=== PATIENT | female | born 1955 | race Caucasian/White ===

== ENCOUNTER 2019-06-23 08:46 | Inpatient (IN) ==
[2019-06-18 19:15] LABS: Appearance,Urine CLEAR; Bilirubin,Urine NEG (NEG); Color,Urine STRAW; Culture Indicated,Urine NO; Glucose,Urine (UA) NEGATIVE (NEG); Ketones,Urine NEG (NEG); Leukocyte Esterase,Urine NEG /uL (NEG); Nitrate,Urine NEG (NEG); Protein,Urine NEG (NEG); Specific Gravity,Urine 1.017 (1.000-1.035); Urine Blood NEG mg/dL (<0.03); Urobilinogen,Urine NEG (NEG)
[2019-06-18 19:46] LABS: Basophils # (Auto) 0.01 K/mcL (0.00-0.30); Basophils % (Auto) 0.2 % (0.0-2.0); Eosinophils # (Auto) 0 K/mcL (0.00-0.70); Eosinophils % (Auto) 0 % (0.0-7.0); Hematocrit 35.3 % (34.1-44.9); Hemoglobin 11.5 g/dL (11.2-15.7); Lymphocytes # (Auto) 1.81 K/mcL (1.50-4.80); Lymphocytes % (Auto) 32.5 % (15.5-49.0); Mean Cell Volume 103.2 fL (80.0-100.0); Mean Corpuscular HGB Conc 32.6 g/dL (31.0-36.0); Mean Platelet Volume 9.5 fL (7.4-10.4); Monocytes # (Auto) 0.46 K/mcL (0.10-0.90); Monocytes % (Auto) 8.3 % (1.0-12.0); Platelet Count 315 K/mcL (140-440); RBC 3.42 M/mcL (3.59-5.38); Red Cell Distribution Width 13.8 % (11.5-14.5); WBC 5.6 K/mcL (4.50-11.00)
[2019-06-18 19:58] LABS: Blood Urea Nitrogen 12 mg/dl (8-23); Calcium 9.3 mg/dl (8.6-10.4); Carbon Dioxide 29 mmol/L (22-30); Chloride 101 mmol/L (96-108); Glomerular Filtration Rate 98; Glucose 91 mg/dL (70-105)
[~2019-06-23 08:46] MED LIST: CELECOXIB 200 MG CAPSULE PO SCH; GABAPENTIN 300 MG CAPSULE PO SCH; IPRATROPIUM/ALBUTEROL 3 ML AMPUL.NEB NEB PRN; PREGABALIN 75 MG CAPSULE PO SCH; SCOPOLAMINE 1 PATCH PATCH TOPICAL PRN; ceFAZolin 2 GM in DEXTROSE 5% IN WATER 50 ML IV SCH; oxyCODONE 10 MG TAB.ER.12H PO SCH
[2019-06-23] MEDS ORDERED: ePHEDrine 50 MG/ML AMPUL IV ONE (12:22)
[2019-06-23] MEDS ORDERED: PHENYLEPHRINE 10 MG/ML VIAL IV ONE (12:22)
[2019-06-23] MEDS ORDERED: PROPOFOL 200 MG/20 ML VIAL IV ONE (12:22)
[2019-06-23] MEDS ORDERED: DEXAMETHASONE 10 MG/ML VIAL IV ONE (12:22)
[2019-06-23] MEDS ORDERED: ONDANSETRON 4 MG/2 ML VIAL IV ONE (12:22)
[2019-06-23] MEDS ORDERED: ROPIVACAINE HCL/PF 20 ML VIAL IJ ONE (12:22)
[2019-06-23] MEDS ORDERED: GLYCOPYRROLATE 0.2 MG/ML VIAL IV ONE (12:22)
[2019-06-23] MEDS ORDERED: TRANEXAMIC ACID 1,000 MG/10 ML VIAL IV ONE (12:22)
[2019-06-23] MEDS ORDERED: LIDOCAINE HCL/PF 100 MG/5 ML SYRINGE IV ONE (12:22)
[2019-06-23] MEDS ORDERED: SUCCINYLCHOLINE 20 MG/ML ML IV ONE (12:22)
[2019-06-23] MEDS ORDERED: KETAMINE 100 MG/ML ML IV ONE (12:22)
[2019-06-23] MEDS ORDERED: GUM MASTIC/STORAX/MSAL/ALCOHOL 1 DOSE DROPERETTE TOPICAL ONE (14:42)
[2019-06-23] MEDS ORDERED: VANCOMYCIN 1 GM VIAL TOPICAL ONE (14:45)
--- NOTE | 2019-06-23 14:54 | Brief Operative Note ---
Date of procedure: 06/23/19 Pre-op diagnosis: right shoulder massive rotator cuff tear with arthropathy Post-op diagnosis: same Procedure: left shoulder reverse total knee arthroplasty Grafts/Implants: Yes (Marc Perform reverse total shoulder) Findings: rotator cuff arthropathy Complications: none Surgeon: Juan M Odell Assistant Media Planner: John Rubi Estimated blood loss (cc): 200 Tourniquet Time (Minutes): 0 Specimens Removed/Pathology: none sent Condition: stable Disposition: PACU
[2019-06-23] MEDS ORDERED: METHOCARBAMOL 750 MG TABLET PO PRN (14:58)
[2019-06-23] MEDS ORDERED: BENZOCAINE/MENTHOL 1 LOZENGE PO PRN (14:58)
[2019-06-23] MEDS ORDERED: POLYETHYLENE GLYCOL 3350 17 GM PACKET PO PRN (14:58)
[2019-06-23] MEDS ORDERED: FLEETS ADULT ENEMA PR PRN (14:58)
[2019-06-23] MEDS ORDERED: BISACODYL 10 MG SUPP.RECT PR PRN (14:58)
[2019-06-23] MEDS ORDERED: MAGNESIUM HYDROXIDE 30 ML ORAL.SUSP PO PRN (14:58)
[2019-06-23] MEDS ORDERED: ONDANSETRON 4 MG/2 ML VIAL IV PRN ×2 (14:58→15:27)
[2019-06-23] MEDS ORDERED: ACETAMINOPHEN 325 MG TABLET PO SCH (15:00)
[2019-06-23] MEDS ORDERED: ACETAMINOPHEN 1,000 MG/100 ML BOTTLE IV ONE (15:27)
[2019-06-23] MEDS ORDERED: MEPERIDINE 25 MG/ML SYRINGE IV PRN (15:27)
[2019-06-23] MEDS ORDERED: IPRATROPIUM/ALBUTEROL 3 ML AMPUL.NEB NEB PRN (15:27)
[2019-06-23] MEDS ORDERED: KETOROLAC 15 MG/ML VIAL IV PRN (15:27)
[2019-06-23] MEDS ORDERED: LACTATED RINGERS 1,000 ML IV SCH (15:30)
[2019-06-23] MEDS: fentaNYL 100 MCG/2 ML VIAL IV PRN ×4 (16:02→16:21)
--- NOTE | 2019-06-23 16:02 | XRay Report ---
HISTORY: Postop right shoulder arthroplasty FINDINGS: There is a well-positioned reverse shoulder prosthesis. No fracture or abnormal soft tissue calcification are present. IMPRESSION: Well-positioned right shoulder prosthesis Interpreted and Authenticated by: Eduar Marie 06/23/19
--- NOTE | 2019-06-23 16:29 | Operative Note ---
DATE OF OPERATION: 06/23/2019 PREOPERATIVE DIAGNOSIS: Right shoulder rotator cuff arthropathy. POSTOPERATIVE DIAGNOSIS: Right shoulder rotator cuff arthropathy. PROCEDURE PERFORMED: Right shoulder reverse total shoulder arthroplasty. SURGEON: Juan M Odell M.D. DYE HOUSE HAND: John Rubi M.D. An lead recreation assistant surgeon was needed for safe and efficient completion of the entire case. No qualified PA was available. ANESTHESIA: General endotracheal anesthesia with peripheral nerve block. IV FLUIDS: 1500 mL lactated Ringer's. IV ANTIBIOTICS: 2 grams Ancef. ESTIMATED BLOOD LOSS: 200 mL. TOURNIQUET TIME: Not applicable. IMPLANTS: Tornier Perform reverse total shoulder arthroplasty with a size 25 mm baseplate with +3 lateralization, standard 36 mm glenosphere, high offset reverse tray with a 36, +6 mm reversed insert with a long humeral stem size 2. PATHOLOGY/LAB: None. INTRAOPERATIVE COMPLICATIONS: None apparent. INDICATIONS FOR PROCEDURE: The patient is a 63-year-old female who has massive rotator cuff tears of the subscap, as well as the supraspinatus with retraction, some fatty infiltration with superior migration of humeral head. Initially I discussed treatment options with her to include attempt at repair versus reverse total shoulder arthroplasty. She had significant weakness but had full active range of motion and was a bit apprehensive to proceed with reverse total shoulder arthroplasty. However, I had a lengthy discussion with her regarding the recovery process of a rotator cuff repair along with a chance of failure. I also discussed the risk of reverse shoulder arthroplasty. After thinking about it for several months, and after a trial of physical therapy and injections, she determined she wished to proceed with a reverse shoulder arthroplasty. I think factoring in was a more predictable recovery, as well as she lives alone and is right-side dominant. I did discuss risks and benefits of the surgery as well as postop rehabilitation course and expectations. She wished to proceed in that fashion. DESCRIPTION OF PROCEDURE: The patient was met in the preoperative holding area. Site was verified and marked with the patient's input. She was then taken back to the operating room where she underwent successful endotracheal anesthesia and a peripheral nerve block and was placed in the beach chair position. The right shoulder was prepped and draped in the usual sterile fashion with ChloraPrep. She had bilateral lower extremity sequential compression boots placed as well. A surgical timeout was performed to verify patient identity, correct procedure being performed, and correct extremity being operated on. Everybody was in agreement. Created an incision from the coracoid down to the anterior lateral aspect of the shoulder for a deltopectoral approach. Skin was sharply incised. Hemostasis was obtained with electrocautery device. The deltopectoral interval was identified. The cephalic vein was identified and retracted laterally. The subdeltoid recess was developed all the way posterior, circumferential around the humeral head. The bicipital groove was identified with a lot of fibrinous material and no tendon within the groove itself as it likely has auto ruptured. The subscap was also torn. There is no significant subscap to excise off the lesser tuberosity. However, this subperiosteal sleeve was elevated medially with external rotation of the humerus itself to fully expose the humeral head. I did place additional retractors, a bent Hohmann over the coracoid, as well as a deltoid retractor over the humeral head for improved visualization. Once the femoral head was exposed, I placed one additional retractor over the superior aspect of the glenoid, a bent Hohmann. 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 Utilizing the anatomic guide, the humeral head was resected down to the anatomic neck. The canal finder was utilized at the apex of the metaphyseal portion slightly anterior to the center, then the sounders were utilized to sound up until cortical interference was appreciated. At this time utilizing the box spinner, we removed some of the metaphyseal bone and then subsequently broached up to a size 2 utilizing the version alena to ensure we were at 30 degrees of retroversion. At this point, we seated the stem. Used the planer to plane down onto the broach to get our 132.5 degree humeral head cut. The humeral head protector was placed on top of this. At this point, we completed our release through the rotator interval, as well as on the inferior capsule circumferentially. We placed a retractor in the posterior aspect of the glenoid to retract the humeral head posteriorly, one bent Hohmann retractor on the anterior of the glenoid and one over the superior aspect of the glenoid. The labrum was excised in its entirety and released the inferior capsule back to the posterior capsule and made sure there were no tight bands traversing. Once complete, this allowed us to fully expose the glenoid near on aundrea view. We found the center of the glenoid itself and placed our guide pin with the 10 degree correction to improve our version as well as our inclination. At this point utilizing a reamer, we reamed away the glenoid over the guidewire down until the majority of the glenoid had cortical cancellous bone visible except for the posterior superior aspect. The small inferior ledge was rongeured off. The central hole was drilled and then the post-hole was drilled over top of this and subsequently the hole for the compression screw was also drilled. Using the guide with baseplate attached, we placed the baseplate with a 3 mm offset. We placed a compression screw to secure the plate into place with good compression. The anterior screw did not have much bony coverage. I felt that screw would be too short, thus placed our superior and inferior locking screws and posterior screw with good bone quality overall. Once this was complete, I placed a 36, +0 centric glenosphere. Retractors were removed from the glenoid. The humeral head was again exposed and placed our offset tray along with a standard +6 spacer. The shoulder was then attempted to be reduced. However, it was too tight and was irreducible. At this point, we removed the tray, as well as the insert off the humerus and broached down a little bit further and re-calcar reamed the metaphysis approximately 3 mm. Once this was complete, we re-placed our trial components, reduced the joint and felt to be under a good tension at that point. It was stable with adduction. There did not appear to be any impingement at the neck. The extension was greater than 30 degrees with no instability. External rotation as well forward flexion, abduction did not impinge superiorly and did not lever under palpation and direct visualization. I was happy with the overall construct. At this point, the shoulder was dislocated again. The glenosphere was changed out to the 36 mm standard centric glenoid, and we placed our humeral implant construct which was constructed on the back table to match our trial components. This was then impacted and the joint was reduced again. Again, was taken through range of motion as noted above and noted to be stable. I was happy with the overall tension of the deltoid and the conjoined tendon. At this point, the wound was copiously irrigated. I did irrigate multiple times throughout the case with Irrisept and again at the end of the case and subsequently I did wash with 0.035% Betadine and this was irrigated again. We placed 1 gram of vancomycin powder deep in the wound. The anterior periosteal sleeve was repaired back to the humerus with two Ethibond sutures. There was no biceps tenodesis performed as it was already auto-tenodesed. The deltopectoral interval was closed with a 2-0 Vicryl, and subcuticular tissue with 3-0 Vicryl. The skin was closed with jason and Steri-Strips. The shoulder was clean and dried. Xeroform was placed along with fluff and Medipore tape to secure the dressing and placed in a shoulder abduction shoulder immobilizer. The patient awoke from anesthesia and was transferred to PACU in stable condition. POSTOPERATIVE PLAN: The patient will be admitted for overnight observation, likely to be discharged home tomorrow. DLW:[email or web address] Job ID: [id number] Doc ID: [id number] Juan M TORRES
[2019-06-23] MEDS: LACTATED RINGERS 1,000 ML IV SCH (16:50)
[2019-06-23] MEDS: GABAPENTIN 300 MG CAPSULE PO SCH ×2 (17:27→21:03)
[2019-06-23] MEDS: ceFAZolin 1 GM VIAL IV SCH (19:45)
[2019-06-23] MEDS ORDERED: SENNOSIDES 1 TABLET PO SCH (21:00)
[2019-06-23] MEDS ORDERED: risperiDONE 1 MG TABLET PO SCH (21:00)
[2019-06-23] MEDS: ACETAMINOPHEN 500 MG TABLET PO SCH (21:02)
[2019-06-23] MEDS: DIVALPROEX 125 MG CAP.SPRINK PO SCH (21:02)
[2019-06-23] MEDS: oxyCODONE HCL 5 MG TABLET PO PRN (21:02)
[2019-06-23] MEDS: DOCUSATE SODIUM 100 MG CAPSULE PO SCH (21:02)
[2019-06-23] MEDS: ASPIRIN 81 MG TAB.CHEW PO SCH (21:03)
[2019-06-23] MEDS: OXYBUTYNIN CHLORIDE 5 MG TABLET PO SCH (21:03)
[2019-06-23] MEDS: 0.9 % SODIUM CHLORIDE 10 ML SYRINGE IV SCH (21:04)
[2019-06-24] MEDS: oxyCODONE HCL 5 MG TABLET PO PRN ×2 (00:25→08:04)
[2019-06-24] MEDS: ceFAZolin 1 GM VIAL IV SCH (04:02)
[2019-06-24] MEDS: 0.9 % SODIUM CHLORIDE 10 ML SYRINGE IV SCH (04:05)
[2019-06-24] MEDS: LACTATED RINGERS 1,000 ML IV SCH (04:05)
[2019-06-24] MEDS ORDERED: LEVOTHYROXINE 50 MCG TABLET PO SCH (07:30)
--- NOTE | 2019-06-24 07:51 | Orthopedic Progress Note ---
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 Chief Complaint: [] Interval history: No acute events overnight. Pain is manageable. No chest pain or shortness of breath. Objective Vital signs: Vital Signs Temp Pulse Resp BP Pulse Ox 06/24/19 04:03 98.7 F 90 18 100/58 91 06/23/19 23:42 98.0 F 102 H 18 111/65 95 06/23/19 20:22 98.1 F 80 18 123/80 90 06/23/19 19:47 85 16 93 06/23/19 16:25 98.6 F 85 15 140/81 95 06/23/19 16:05 90 21 145/83 94 06/23/19 15:55 90 12 145/83 95 06/23/19 15:50 95 H 17 140/79 93 06/23/19 15:45 96 H 17 145/90 94 06/23/19 15:40 94 H 15 140/95 100 06/23/19 15:35 94 H 15 139/85 100 06/23/19 15:30 97 H 17 148/88 100 06/23/19 15:25 90 16 145/81 100 06/23/19 15:20 97.0 F 101 H 12 148/89 100 06/23/19 08:46 98.3 F 75 18 128/79 96 Intake and Output 06/23/19 06/24/19 06/24/19 21:59 05:59 13:59 Intake Total 1900 450 Output Total 850 Balance 1050 450 Intake: IV 100 Oral 450 IV - Manual Only 1800 Output: Urine Catheter Amount 650 Estimated Blood Loss 200 Other: Urine Appearance Clear Urine Color Pale Urine Odor Normal # Voids 1 Weight 142 lb 3 oz Intake & Output: Intake & Output 06/23/19 06/24/19 06/24/19 21:59 05:59 13:59 Intake Total 1900 450 Output Total 850 Balance 1050 450 Weight 142 lb 3 oz Intake: IV 100 Oral 450 IV - Manual Only 1800 Output: Urine Catheter Amount 650 Estimated Blood Loss 200 Other: Urine Appearance Clear Urine Color Pale Urine Odor Normal # Voids 1 Incision: Yes clean and dry Incision clean and dry: Yes Dressing: Yes clean, Yes dry, Yes intact Weight bearing status: non Neurological exam IM: Yes neurovascular intact - Labs CBC & BMP: 06/18/19 16:15 06/18/19 16:15 Labs: 06/18/19 16:15 Hgb 11.5 Hct 35.3 Assessment and Plan - Narrative A/P Narrative: POD 1 s/p right reverse total shoulder --block has worn off but oral pain medications are effective. She is neuro intact including axillary nerve. --Tolerating an oral diet, voiding --will d/c later this AM and start PT tomorrow. Demonstrated exercises for her to do until then.
[2019-06-24] MEDS: ASPIRIN 81 MG TAB.CHEW PO SCH (08:03)
[2019-06-24] MEDS: OXYBUTYNIN CHLORIDE 5 MG TABLET PO SCH (08:03)
[2019-06-24] MEDS: DIVALPROEX 125 MG CAP.SPRINK PO SCH (08:03)
[2019-06-24] MEDS: ACETAMINOPHEN 500 MG TABLET PO SCH (08:04)
[2019-06-24] MEDS: GABAPENTIN 300 MG CAPSULE PO SCH (08:04)
[2019-06-24] MEDS: DOCUSATE SODIUM 100 MG CAPSULE PO SCH (08:04)
[2019-06-24] MEDS ORDERED: DULoxetine 30 MG CAPSULE PO SCH (09:00)
--- NOTE | 2019-06-24 10:06 | Discharge Summary ---
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 Chief Complaint: [] Date of admission: 06/23/19 Discharge date: 06/24/19 Attending physician: Juan M Odell Hospitalization Hospital Course: Patient admitted on day of surgery for post operative recovery. Post operatively she was able to mobilize on her own and with nursing staff. She tolerated an oral diet and pain was controlled on oral diet. Her incision was clean and dry without drainage. She was able to void. She was hemodynamically stable prior to discharge. She had an uncomplicated hospital course. Discharge diagnosis: Right shoulder rotator cuff arthritis Reason for admission: Right reverse total shoulder arthroplasty Procedures: Right reverse total shoulder arthroplasty. Complications: None Exam - Exam Incision healing: Yes Incision draining: No Incision red: No Incision swollen: Yes (as expected post operatively.) Incision inflamed: No Clean and dry: Yes Weight bearing status: none Ortho Discharge Plan - General - Patient Instructions Diet: Regular Diet Activity: non weight bearing Dressing Care: Other (may shower with silver dressing in place.) Patient Education: Aspirin (By mouth), Oxycodone, Rapid Release (By mouth), Shoulder Arthroplasty (DC) Additional Instructions: Discharge Instructions: You can shower with the silver dressing in place. Do not submerge in water such as a bath. Pat dry after showering. No ointments or lotions to the area. You can start showering on post op day 2. Leave immobilizer in place except for bathing and ROM. Keep Abduction pillow on at all times until seen by physician. No weight bearing to your right arm/hand. Codman Pendulum : These exercises use momentum produced by your body to move your shoulder joint. Bend your knees and shift your weight to your front leg, then back, allowing your arm to swing in the same directions. Using the same technique, alternately shift your weight between your right and left legs, allowing your arm to swing from side to side. These exercises are also performed in counterclockwise and clockwise circular motions. Typically these exercises are performed several times per day, for a set number repetitions or minutes, such as 20 times in a row or 5 minutes at a time. To avoid constipation while taking any narcotic pain medication, take an over the counter stool softener/laxative. Use ice packs as directed, on for 20 minutes at a time, throughout the day. Ice and elevation will help with pain and swelling. If you have any questions or concerns call your orthopedic surgeon before going to the emergency room. [facility] has a manager social responsibility physician 24 hours per day/7 days per week and can be reached at [phone]. Call for fevers above 100.5 or pain not controlled by medication. Your prescriptions are with your discharge information. You will need to take your prescription for pain medication to your pharmacy to be filled, you also have a prescription for Aspirin that you will need to fill and take as prescribed. - Follow Up Plan Follow Up Appointments: Andrés Burton PA-C [Physician Optical Mechanic Apprentice] - 07/08/19 9:00 am Disposition: Home, Self-Care Care Plan Goals: This discharge packet is provided to you to help keep you informed about your care. We want to ensure you get everything you need when you go home. You will also be receiving a call from us in a few days to follow up with you and see how you are doing since your discharge. This gives us a chance to listen to any concerns you maybe experiencing since you were discharged or any additional needs you may have, as well as providing us feedback on your care experience. We strive to always provide excellent care and thank you for your feedback and for choosing [facility]. Prognosis: Good Rehab Potential: Good I certify that the patient requires SNF services: No - Orders For Discharge Prescriptions: RX: Aspirin 81 mg PO BID #56 tab.chew Prescription Printed RX: oxyCODONE HCL [Roxicodone] 5 - 10 mg PO Q4H PRN #40 tab PRN Reason: Pain Prescription Printed Pending Studies Diet Regular Diet Start SatJun 23 1510 Shift Summary 06/24/19 02:42 Shift Summary by Padmini Agrawal Pt is A&O able to make needs known. Using call light. Ambulating to and from bathroom without difficulties. Voiding QS. Dressing to rt shoulder CSI. Immobilizer in place. SCD in place. Will SL IV. Pt eating and drinking w/o difficulties. Pt has chronic back pain uses fentanyl patch at home, not in place and not ordered at this time. Taking 2 oxy for pain, and scheduled Tylenol. Pt should discharge today. Will update with verbal report. Initialized on 06/24/19 02:42 - END OF NOTE
== END 2019-06-24 09:30 | disposition home or self-care (01) | DRG 483 ==
LOC: MEDSUR 08:46
PROVIDERS: ADMIT Orthopaedic Surgery; ATTEND Orthopaedic Surgery

== ENCOUNTER 2021-10-04 09:56 | Inpatient (IN) ==
[2021-09-26 18:54] LABS: Basophils # (Auto) 0.01 K/mcL (0.00-0.30); Basophils % (Auto) 0.2 % (0.0-2.0); Eosinophils # (Auto) 0 K/mcL (0.00-0.70); Eosinophils % (Auto) 0 % (0.0-7.0); Hematocrit 40.3 % (34.1-44.9); Hemoglobin 13.5 g/dL (11.2-15.7); Lymphocytes # (Auto) 0.86 K/mcL (1.50-4.80); Lymphocytes % (Auto) 16.9 % (15.5-49.0); Mean Cell Volume 99.3 fL (80.0-100.0); Mean Corpuscular HGB Conc 33.5 g/dL (31.0-36.0); Mean Platelet Volume 10.4 fL (7.4-10.4); Monocytes # (Auto) 0.33 K/mcL (0.10-0.90); Monocytes % (Auto) 6.5 % (1.0-12.0); Neutrophils % (Auto) 76.4 % (38.0-78.0); Platelet Count 240 K/mcL (140-440); RBC 4.06 M/mcL (3.59-5.38); Red Cell Distribution Width 12.2 % (11.5-14.5); WBC 5.1 K/mcL (4.5-11.0)
[2021-09-26 19:18] LABS: Estimated Average Glucose(eAG) 100 mg/dL; Hemoglobin A1C 5.1 % Hgb (4.0-6.0)
[2021-09-26 19:19] LABS: ALT/SGPT 245 U/L (<40); AST/SGOT 231 U/L (<32); Albumin 3.8 gm/dL (3.2-5.2); Albumin/Globulin Ratio 1.5 (1.0-2.3); Alkaline Phosphatase 223 U/L (39-117); Bilirubin,Total 0.2 mg/dL (0.1-1.0); Blood Urea Nitrogen 16 mg/dL (8-23); Calcium 8.8 mg/dL (8.6-10.4); Carbon Dioxide 28 mmol/L (22-30); Chloride 96 mmol/L (96-108); Globulin 2.5 gm/dL (2.2-3.7); Glomerular Filtration Rate 96; Glucose 82 mg/dL (70-105)
[2021-09-26 19:26] LABS: Erythrocyte Sedimentation Rate 8 mm/hr (0-30)
[2021-09-28 14:15] LABS: Appearance,Urine HAZY (Clear); Bilirubin,Urine Negative (Negative); Color,Urine AMBER; Culture Indicated,Urine No; Glucose,Urine (UA) Negative (Negative); Ketones,Urine 5 mg/dL (Negative); Leukocyte Esterase,Urine Negative /uL (Negative); Nitrate,Urine Negative (Negative); Protein,Urine Negative (Negative); Specific Gravity,Urine 1.034 (1.000-1.035); Urine Blood Negative (Negative); Urobilinogen,Urine Negative
--- NOTE | 2021-09-29 06:18 | EKG ---
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
[~2021-10-04 09:56] MED LIST changes: -GABAPENTIN 300 MG CAPSULE PO SCH; +PREGABALIN 50 MG CAPSULE PO SCH; -PREGABALIN 75 MG CAPSULE PO SCH
[2021-10-04] MEDS: 0.9 % SODIUM CHLORIDE 9 ML, KETOROLAC 30 MG, ROPIVACAINE HCL/PF 49.5 ML, EPINEPHrine 0.... IJ SCH ×2 (12:16→15:15)
[2021-10-04] MEDS ORDERED: ceFAZolin 2 GM in DEXTROSE 5% IN WATER 50 ML IV SCH (13:15)
[2021-10-04] MEDS ORDERED: KETAMINE 50 MG/ML Syringe (ANEST) IV ONE (13:23)
[2021-10-04] MEDS ORDERED: TRANEXAMIC ACID 1,000 MG/10 ML VIAL ONE (13:23)
[2021-10-04] MEDS ORDERED: DEXAMETHASONE 10 MG/ML VIAL ONE (13:23)
[2021-10-04] MEDS ORDERED: ROCURONIUM 10 MG/ML ML IV ONE (13:23)
[2021-10-04] MEDS ORDERED: ONDANSETRON 4 MG/2 ML VIAL ONE (13:23)
[2021-10-04] MEDS ORDERED: GLYCOPYRROLATE 0.2 MG/ML VIAL IV ONE (13:23)
[2021-10-04] MEDS ORDERED: SUGAMMADEX SODIUM 200 MG/2 ML VIAL IV ONE (13:23)
[2021-10-04] MEDS ORDERED: MAGNESIUM SULFATE 2 GM/50 ML BAG IV ONE (13:23)
[2021-10-04] MEDS ORDERED: ROPIVACAINE HCL/PF 20 ML VIAL IJ ONE (13:23)
[2021-10-04] MEDS ORDERED: PROPOFOL 200 MG/20 ML VIAL IV ONE (13:23)
[2021-10-04] MEDS ORDERED: LIDOCAINE HCL/PF 100 MG/5 ML SYRINGE IV ONE (13:23)
[2021-10-04] MEDS ORDERED: FLEETS ADULT ENEMA PR PRN (15:44)
[2021-10-04] MEDS ORDERED: TRANEXAMIC ACID 1,000 MG/10 ML VIAL IV ONE (15:44)
[2021-10-04] MEDS ORDERED: HYDROmorphone 1 MG/ML SYRINGE IV PRN (15:44)
[2021-10-04] MEDS ORDERED: HYDROcodone/APAP 10/325MG TABLET PO PRN (15:44)
[2021-10-04] MEDS ORDERED: TEMAZEPAM 15 MG CAPSULE PO PRN (15:44)
[2021-10-04] MEDS ORDERED: ONDANSETRON 4 MG/2 ML VIAL IV PRN ×2 (15:44→16:13)
[2021-10-04] MEDS ORDERED: MAGNESIUM HYDROXIDE 30 ML ORAL.SUSP PO PRN (15:44)
[2021-10-04] MEDS ORDERED: BISACODYL 10 MG SUPP.RECT PR PRN (15:44)
[2021-10-04] MEDS ORDERED: POLYETHYLENE GLYCOL 3350 17 GM PACKET PO PRN (15:44)
--- NOTE | 2021-10-04 15:44 | Brief Operative Note ---
Brief Operative Note Date of procedure: 10/04/21 Pre-op diagnosis: Failed right total knee arthroplasty Post-op diagnosis: same Procedure: Right revision total knee arthroplasty of femoral and tibial components Removal of total knee arthroplasty Grafts/Implants: Yes ([place] Triathlon size 3 TS femur w 100 stem, size 2 tibia w 100 stem, 16 i) Anesthesia: spinal and GLMA Findings: instability, incompetent ACL Complications: none Surgeon: John Rubi Ground Support Equipment Fitter: Chadwick Ford Estimated blood loss (cc): 50 Specimens Removed/Pathology: other (femoral & tibial components w poly inserts, c&s x 2, synovium for rapid frozen (0 WBC's/hpf)) Condition: stable Disposition: PACU
[2021-10-04] MEDS ORDERED: DOCUSATE SODIUM 100 MG CAPSULE PO PRN (15:47)
[2021-10-04] MEDS ORDERED: clonazePAM 0.5 MG TABLET PO PRN (15:47)
[2021-10-04] MEDS ORDERED: PROMETHAZINE 25 MG/ML VIAL IV PRN (16:13)
[2021-10-04] MEDS ORDERED: IPRATROPIUM/ALBUTEROL 3 ML AMPUL.NEB NEB PRN (16:13)
[2021-10-04] MEDS ORDERED: LACTATED RINGERS 250 ML IV PRN (16:13)
[2021-10-04] MEDS ORDERED: MEPERIDINE 25 MG/ML VIAL IV PRN (16:13)
[2021-10-04] MEDS ORDERED: NALOXONE HCL 0.4 MG/ML VIAL IV PRN (16:13)
[2021-10-04] MEDS ORDERED: LACTATED RINGERS 1,000 ML IV SCH (16:15)
[2021-10-04] MEDS: fentaNYL 100 MCG/2 ML VIAL IV PRN ×4 (16:34→16:46)
--- NOTE | 2021-10-04 16:46 | XRay Report ---
HISTORY: Postop right total knee revision FINDINGS: There is a well-positioned right total knee prosthesis. Both the femoral and tibial components have long intramedullary rods. There is no fracture. IMPRESSION: Well-positioned knee prosthesis Interpreted and Authenticated by: Eduar Marie 10/04/21
[2021-10-04] MEDS: 0.9 % SODIUM CHLORIDE 1,000 ML IV SCH (17:25)
[2021-10-04] MEDS: OXYBUTYNIN CHLORIDE 5 MG TABLET PO SCH ×3 (17:26→20:47)
[2021-10-04] MEDS: PRAMIPEXOLE 0.25 MG TABLET PO SCH ×2 (17:34→20:47)
[2021-10-04] MEDS: KETOROLAC 30 MG/ML VIAL IV SCH (17:36)
[2021-10-04] MEDS: PREGABALIN 25 MG CAPSULE PO SCH (20:47)
[2021-10-04] MEDS: DOCUSATE SODIUM 100 MG CAPSULE PO SCH (20:47)
[2021-10-04] MEDS: ASPIRIN 81 MG TAB.CHEW PO SCH (20:47)
[2021-10-04] MEDS: 0.9 % SODIUM CHLORIDE 10 ML SYRINGE IV SCH (20:48)
[2021-10-04] MEDS: ceFAZolin 1 GM VIAL IV SCH (20:58)
[2021-10-04] MEDS ORDERED: SENNOSIDES 1 TABLET PO SCH (21:00)
[2021-10-04] MEDS ORDERED: VITAMIN D3 25 MCG TABLET PO SCH (21:00)
[2021-10-05] MEDS: KETOROLAC 30 MG/ML VIAL IV SCH ×2 (01:34→05:29)
[2021-10-05] MEDS: 0.9 % SODIUM CHLORIDE 1,000 ML IV SCH (03:05)
[2021-10-05] MEDS: ceFAZolin 1 GM VIAL IV SCH (05:24)
[2021-10-05] MEDS: 0.9 % SODIUM CHLORIDE 10 ML SYRINGE IV SCH (05:25)
--- NOTE | 2021-10-05 07:17 | Discharge Summary ---
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 Chief Complaint: [] Date of admission: 10/04/21 09:56 Discharge date: 10/05/21 Primary care physician: Evangelina Munoz COURSE Hospital Course Hospital course: Pt admitted for a R TKA revision. Pt underwent the procedure day of admission. Discharged to home post-op day 1. ASA for DVT prophylaxis. Discharge diagnosis: R knee pain s/p TKA Time Spent with Patient Time attestation: Total time spent providing and/or coordinating discharge services: Physical Examination Exam Clean and dry: Yes Weight bearing status: as tolerated Discharge Instructions - TKA Patient Instructions Total Knee Protocol: For Total Knee: Start ROM BEKA with stationary bike or rocking chair. Work on gaining full extension of knee. Posterior dislocation precautions provided. Hip abductor strengthening and gait training instructions provided. Apply Cryocuff as instructed. Dressing Care: May shower in 2 days Discharge Plan Patient/Caregiver Discharge Instructions Activity: increase activity as tolerated Diet: Regular Diet Prescriptions: New aspirin 81 mg tablet,delayed release (DR/EC) 81 mg PO BID Qty: 30 0RF hydrocodone-acetaminophen 10-325 mg tablet 1 - 2 tab PO Q4-6HP PRN (Reason: pain) Qty: 60 0RF Continued docusate sodium 100 MG capsule 100 mg PO HSP PRN (Reason: Constipation) 0RF oxybutynin chloride 5 MG tablet 5 mg PO QID 0RF loratadine 10 MG tablet 10 mg PO DAILY 0RF cholecalciferol (vitamin D3) [Vitamin D3] 1,000 UNIT tablet 2,000 unit PO HS 0RF clonazepam 0.5 MG tablet 0.25 mg PO DAILYP PRN (Reason: Anxiety) 0RF acetaminophen 500 mg Tablet 1,000 mg PO TIDP PRN (Reason: Pain) 0RF levothyroxine [Euthyrox] 75 mcg tablet 75 mcg PO ACB 0RF pramipexole 0.5 mg Tablet 0.5 mg PO BID@17,21 0RF calcium carbonate [Calcium 600] 600 mg calcium (1,500 mg) Tablet 600 mg PO DAILY 0RF magnesium oxide 500 mg Tablet 500 mg PO DAILY 0RF multivitamin with minerals Tablet 1 tab PO DAILY 0RF duloxetine 60 mg capsule,delayed release(DR/EC) 120 mg PO DAILY 0RF pregabalin 50 mg Capsule 50 mg PO TID 0RF Discontinued ferrous sulfate 325 mg (65 mg iron) Tablet 325 mg PO BIDCC 0RF Label Comments: TAKING FOR SURGERY Other Ambulatory Orders: Physical Therapy at Discharge - TKA (Routine) Location: None Selected Ordered By: Chadwick Veras (ONCE) Location: None Selected Ordered By: Chadwick Ford Follow Up Plan Follow up with: John Rubi MD [Physician] - 10/19/21 8:40 am Chadwick Ford PA-C [Physician Airway Controller] - Patient Disposition: Home, Self-Care Rehab Potential: Good Overall status at discharge: patient is progressing back to baseline Discharge Orders: Discharge Order (Routine); Ordered 10/05/21 Ordered By: Chadwick Ford Pending Pending Pending: Resuscitation Status Resuscitate (Full Code) Diet Regular Diet Start SatOct 04 1544 Aspirin (Aspirin 81 Mg Tab.Chew) 81 mg PO BID [facility] Last Admin: 10/04/21 20:47 Dose: 81 mg Documented by: ELISABETH Docusate Sodium (Docusate Sodium 100 Mg Capsule) 100 mg PO BID [facility] Last Admin: 10/04/21 20:47 Dose: 100 mg Documented by: ELISABETH Hydromorphone HCl (Hydromorphone 1 Mg/Ml Syringe) 0.5 - 2 mg IV Q2HP PRN; Protocol PRN Reason: Per Pain Protocol Last Admin: 10/04/21 20:59 Dose: 0.5 mg Documented by: ELISABETH Sodium Chloride (Sodium Chloride 0.9%) 1,000 mls @ 100 mls/hr IV .Q10H [facility] Last Infusion: 10/05/21 06:59 Dose: 0 mls/hr Documented by: Admin: 10/05/21 03:05 Dose: Not Given Documented by: Admin: 10/04/21 17:25 Dose: 100 mls/hr Documented by: NOLA Ketorolac Tromethamine (Ketorolac 30 Mg/Ml Vial) 30 mg IV Q6 [facility] Stop: 10/06/21 12:01 Last Admin: 10/05/21 05:29 Dose: 30 mg Documented by: Admin: 10/05/21 01:34 Dose: 30 mg Documented by: Admin: 10/04/21 17:36 Dose: 30 mg Documented by: NOLA Ondansetron HCl (Ondansetron 4 Mg/2 Ml Vial) 4 mg IV Q4HP PRN; Protocol PRN Reason: Nausea And Vomiting Last Admin: 10/04/21 20:59 Dose: 4 mg Documented by: ELISABETH Oxybutynin Chloride (Oxybutynin Chloride 5 Mg Tablet) 5 mg PO QID [facility] Last Admin: 10/04/21 20:47 Dose: 5 mg Documented by: Admin: 10/04/21 17:34 Dose: 5 mg Documented by: NOLA Pramipexole Dihydrochloride (Pramipexole 0.25 Mg Tablet) 0.5 mg PO BID@1700,2100 [facility] Last Admin: 10/04/21 20:47 Dose: 0.5 mg Documented by: Admin: 10/04/21 17:34 Dose: 0.5 mg Documented by: NOLA Pregabalin (Pregabalin 25 Mg Capsule) 50 mg PO TID [facility] Last Admin: 10/04/21 20:47 Dose: 50 mg Documented by: ELISABETH Senna (Sennosides 1 Tablet) 2 tab PO [facility] Last Admin: 10/04/21 20:48 Dose: Not Given Documented by: ELISABETH Sodium Chloride (0.9 % Sodium Chloride 10 Ml Syringe) 10 ml IV Q8 [facility] Last Admin: 10/05/21 05:25 Dose: 10 ml Documented by: Admin: 10/04/21 20:48 Dose: 10 ml Documented by: ELISABETH Vitamin D (Vitamin D3 25 Mcg Tablet) 25 mcg PO [facility] Last Admin: 10/04/21 20:48 Dose: 25 mcg Documented by: ELISABETH Shift Summary 10/05/21 06:41 Shift Summary by Beverly Slade Primary Diagnosis: Right removal knee prosthesis and revision TKA Registration Status: ExR Day of Hospitalization: 06/06/21 arrived at 1000 Date of Surgery (if applicable): 06/06/21 left floor for surgery at 1250 Pertinent Medical Dx/Issue(s): anxiety, depression, Bipolar Interventions (wounds, diuresis, etc): Up to restroom with walker/gait belt Dilaudid x 1 Scheduled Toradol Scheduled Ancef Ice to operative side Turn PRN Jose M wrap and post op dressing in place clean/dry/intact Tolerating food/drink Vital Signs with Trends: VSS RA Neuro/Mental Status: A&O X 4 Lines/Tubes: IV Right Ac Date of last BM: 07/07/21 Elimination (remove Ayala within 24h if appropriate): stress incontinence D/C: Today Initialized on 10/05/21 06:41 - END OF NOTE
[2021-10-05] MEDS ORDERED: LEVOTHYROXINE 75 MCG TABLET PO SCH (07:30)
--- NOTE | 2021-10-05 07:42 | Operative Note ---
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 POSTOPERATIVE DIAGNOSIS: Failed anterior cruciate ligament, preserving total knee arthroplasty on the right. PROCEDURE PERFORMED: 1. Removal of total knee arthroplasty. 2. Revision total knee arthroplasty of the right knee femoral and tibial components to a Lucrecia Triathlon size 3, total stabilized femoral component with a 100 mm stem and a size 2 tibial baseplate with a 100 mm stem and a 16 mm total stabilized polyethylene insert. SURGEON: John Rubi MD WAXING MACHINE OPERATOR: Claude Ford PA-C. This providers expertise and technical skill were required throughout the case. The PA assisted with preoperative coordination, intraoperative retraction, wound closure, and dressing and splint application, as well as postoperative documentation and care coordination. ANESTHESIA: Spinal plus general. DRAINS: None. SPECIMEN: Culture and sensitivity x2 as well as removed the femoral and tibial component and polyethylene inserts x2. ESTIMATED BLOOD LOSS: 50 mL. COMPLICATIONS: None. POSTOPERATIVE CONDITION: Stable. INDICATIONS FOR SURGERY: This is a 66-year-old female who had several years ago undergone a right anterior cruciate ligament, ACL preserving total knee arthroplasty surgery by another surgeon. She had not done well from that postoperatively and wished to proceed with revision surgery. FINDINGS AT SURGERY: The ACL appeared to be incompetent. There was instability to the knee. Post implantation showed satisfactory limb alignment, patellar tracking, and joint stability. PROCEDURE IN DETAIL: The patient had been seen preoperatively and informed consent had been obtained after discussion of risks and benefits of surgery. Risks including, but not limited to, bleeding; infection, possibly requiring implant removal and prolonged IV antibiotics, this being increased risk with revision surgery, injury to nerves, blood vessels, other surrounding structures, anesthetic risks; incomplete or no resolution of symptoms; possibility of needing further revision surgery, stiffness, swelling, pain, instability, DVT and pulmonary embolus risks. She understood these risks and wished to proceed. Correct operative site was marked in the preoperative holding, and the patient received spinal anesthesia. She was then taken to the operating room and LMA general was performed. The right lower extremity was then carefully prepped and draped in normal sterile fashion. A timeout was performed verifying patient name, operative site, and plan. Ioban was used to cover all skin surfaces and an Esmarch was used to exsanguinate the extremity, and tourniquet was inflated to 300 mmHg. Her previous surgical scar was utilized with a scalpel through skin and subcutaneous tissue midline anteriorly and then hemostasis obtained with Bovie cautery. IrriSept was irrigated and then a medial parapatellar arthrotomy was made. She had a small joint effusion that did not appear purulent. I did this for completeness sake. However, I did go ahead and take a culture and sensitivity of this fluid x2. I also then removed some synovial tissue from behind the patellar tendon and sent this off to pathology for a rapid frozen section. Rapid came back with 0 white blood cells per high powered field. All of this indicated no evidence of infection. I did a subperiosteal exposure of the anterior medial tibia and then osteotome was used to remove polyethylene liner inserts. Prior to removal, we did perform anterior drawer under direct visualization and the ACL appeared incompetent even though fibers were still present. We then started proceeding with removal of the femur and using a flexible osteotome around its periphery, I then used a fishmouth tool to disimpact the femur and remove it. We then proceeded to the tibia and similarly used the flexible osteotome and then a fishmouth to disimpact it. Once these components were removed, I did a careful removal of cement. We then made an entry hole into the tibial canal and then sequentially increased our reaming until we got cortical fixation. We then placed a cutting guide over the alena and placed an Aidan Wing on the bone surface. I then pinned this into place and using the saw did a freshening cut, removing about 2 mm of bone off of the surface. We then sized the tibia and it appeared that a 3 was too large. We went down to a 2. This also allowed me, with the offset, to externally rotate the tibial component appropriately. Once we dialed in our best coverage, we then marked the number on the clock and then assembled a tibial component with an offset connector and then the alena trial. The tibial trial was then impacted down into the tibia. We then turned to the femur. Similarly, we made canal entry with an opening reamer and then began sequentially reaming until we got cortical purchase. We reamed over the top of this for the offset adapter and then went with a size 3 femoral component. This was dialed in almost with direct posterior offset. It appeared to appropriately match her anatomy to the medial epicondyle that we needed almost 5 mm of augments distally. I did make some very slight freshening cuts on the medial and lateral. We did go ahead then cut a box with the saw. We then assembled a trial on the back table and impacted this. The knee was then taken into extension after placing a polyethylene insert trial. The patella did not particularly want to track lateral, so I did perform a lateral retinacular release. Starting with the Bovie about a centimeter lateral to the patella, the superior margin, and then took this distally all the way to the tibia. This substantially improved the patellar tracking. Her patellar component did not appear loose, so we went ahead and left it. We then opened the components except for the tibial insert. These were assembled on the back table. While this assembly was being prepared, a 50% dilute Betadine solution was irrigated into the joint. This was allowed to sit for several minutes. I then pulse lavaged copiously with saline, and repeated this again with the rest of the Betadine solution, again sitting for several minutes and then pulse lavaged again. We then did an IrriSept irrigation and after a minute or 2, pulse lavaged this out. By this point, the implants were had been assembled and we then mixed antibiotic Pal[place]os cement. The cancellous bone surfaces were then cleaned and dried with the CO2 gun. We placed cement around the baseplate and on the upper tibia and the stems were left cementless. Tibial component was impacted until fully seated. Excess cement removed. We then repeated this with the femur just coating the undersurface of the implant and the bone surfaces and then impacting this until it was fully seated. Excess cement removed with a cement scraper and then the trial insert was placed. The knee was taken into extension. While cement was hardening, we did a pericapsular and subcutaneous injection into the knee; excess cement had already been removed. Once cement had fully hardened, we did not feel our stability was adequate with an 11 insert. I went to a 13 insert. It was improved, but still not sufficiently tensioned, we felt; so I trialed a 16 mm insert and this appeared to have a much improved stability. We went ahead and opened a 16 total stabilized insert, removed the trial insert, injected pain cocktail in the posterior capsule. IrriSept was irrigated and then we impacted the 16 total stabilized insert. The bar was impacted down into the polyethylene post. The knee was taken through range of motion and it was stable, and the patella appeared to be tracking adequately. IrriSept was irrigated once more, after a minute, pulse lavaged with saline, and then the knee was placed in 45 degrees or so of flexion. Towel clamps were used to reduce the patella and then a #1 FiberWire was used around the superior quadrant with several [id number] stitches. The inferior quadrant was closed with #1 Vicryl [id number] sutures. We then did a running suture of the patellar tendon and quad tendon with #1 Vicryl. IrriSept was irrigated after a minute, pulse lavaged with saline, and then subcutaneous closure was closed with 2-0 Monocryl. [place] were used for skin. Xeroform was used to cover the wound and a waterproof silver dressing was placed over top. Tourniquet was then released. The patient was awakened, extubated, and transferred to recovery in stable condition. [email or web address] Job ID: [id number] Doc ID: [id number] John Rubi MD
[2021-10-05] MEDS ORDERED: CALCIUM CARBONATE 500 MG TAB.CHEW PO SCH (09:00)
[2021-10-05] MEDS ORDERED: MULTIVIT,THER IRON,CA,FA & MIN 1 TABLET PO SCH (09:00)
[2021-10-05] MEDS ORDERED: MAGNESIUM OXIDE 400 MG TABLET PO SCH (09:00)
[2021-10-05] MEDS ORDERED: LORATADINE 10 MG TABLET PO SCH (09:00)
[2021-10-05] MEDS ORDERED: DULoxetine 30 MG CAPSULE PO SCH (09:00)
[2021-10-05] MEDS: ASPIRIN 81 MG TAB.CHEW PO SCH (09:26)
[2021-10-05] MEDS: OXYBUTYNIN CHLORIDE 5 MG TABLET PO SCH (09:27)
[2021-10-05] MEDS: DOCUSATE SODIUM 100 MG CAPSULE PO SCH (09:28)
[2021-10-05] MEDS: PREGABALIN 25 MG CAPSULE PO SCH (09:28)
== END 2021-10-05 10:38 | disposition home or self-care (01) | DRG 468 ==
LOC: MEDSUR 09:56 → EDSTATUS 13:00
PROVIDERS: ADMIT Orthopaedic Surgery; ATTEND Orthopaedic Surgery